=== PATIENT | female | born 1980 | race African-American/Black ===

== ENCOUNTER 2021-07-04 21:40 | Emergency (ER) | payer SELFPAY | END 2021-07-04 23:38 | disposition home or self-care (01) | LOC: ERS 21:40 | DX: R10.9 Unspecified abdominal pain (principal); L98.9 Disorder of the skin and subcutaneous tissue, unspecified; I10 Essential (primary) hypertension; E78.5 Hyperlipidemia, unspecified | CPT/HCPCS: 74022 ==